=== PATIENT | male | born 1970 | race Two or more races ===

== ENCOUNTER 2021-09-03 22:48 | Inpatient (IN) | payer OTHER ==
[2021-09-04 00:40] LABS: BASO % 0.5 % (0-2.0); EOS % 1.5 % (0-4.5); HEMATOCRIT 44.2 % (35.4-49); HEMOGLOBIN 14.2 GM/dL (11.7-16.9); LYMPH % 7.9 % (8-40); MCH 27.6 pg (25.7-33.7); MCHC 32.2 g/dl (32.0-35.9); MEAN CELL VOLUME 85.9 fl (80-96); MEAN PLT VOLUME 9.1 fl (7.5-11.1); MONO % 9.2 % (3.8-10.2); NEUT % 80.9 % (42.8-82.8); PLATELET COUNT 344 10^3/uL (134-434); RBC 5.15 M/mm3 (4.00-5.60); RDW 15.6 % (11.9-15.9); WHITE BLOOD COUNT 12.6 K/mm3 (4.0-10.0)
[2021-09-04 01:01] LABS: BLOOD UREA NITROGEN 58.1 mg/dL (7-18); CALCIUM 8.7 mg/dL (8.5-10.1)
[2021-09-04 01:02] LABS: ALBUMIN 2.6 g/dl (3.4-5.0)
[2021-09-04 01:05] LABS: CREATININE 2.9 mg/dL (0.55-1.3)
[2021-09-04 01:06] LABS: BILIRUBIN,TOTAL 0.5 mg/dL (0.2-1); TOT PROT 7.3 g/dl (6.4-8.2)
[2021-09-04 01:09] LABS: N-TERMINAL BNP 10927.5 pg/ml (5-125)
[2021-09-04] MEDS ORDERED: FUROSEMIDE 40 MG/4 ML INJECTABLE VIAL IVPUSH ONE (01:33)
[2021-09-04] MEDS ORDERED: FUROSEMIDE 40 MG/4 ML INJECTABLE VIAL ONE ×2 (02:40→10:23)
[2021-09-04 03:57] LABS: EPI CELLS 2 /uL (0-25.1); HYALINE CASTS 0 /uL (0-3.1); URINE APPEARANCE CLEAR; URINE BACTERIA 7 /uL (0-1359); URINE BILIRUBIN NEGATIVE (NEGATIVE); URINE COLOR YELLOW; URINE GLUCOSE (UA) 2+ (NEGATIVE); URINE KETONE NEGATIVE (NEGATIVE); URINE LEUK ESTERASE NEGATIVE (NEGATIVE); URINE NITRITE NEGATIVE (NEGATIVE); URINE PROTEIN 3+ (NEGATIVE); URINE RBC 4 /uL (0-23.9); URINE WBC 4 /uL (0-25.8)
[2021-09-04] MEDS ORDERED: HEPARIN NA (PORCINE) 5,000 UNITS/ML 1ML VIAL ONE ×3 (06:37→21:22)
[2021-09-04] MEDS: HEPARIN NA (PORCINE) 5,000 UNITS/ML 1ML VIAL SQ SCH ×4 (06:47→21:29)
[2021-09-04 07:28] LABS: BASO % 0.6 % (0-2.0); EOS % 0.9 % (0-4.5); HEMATOCRIT 41.2 % (35.4-49); HEMOGLOBIN 13.2 GM/dL (11.7-16.9); LYMPH % 7.7 % (8-40); MCH 27.5 pg (25.7-33.7); MCHC 31.9 g/dl (32.0-35.9); MEAN CELL VOLUME 86.1 fl (80-96); MEAN PLT VOLUME 9.6 fl (7.5-11.1); MONO % 8.8 % (3.8-10.2); PLATELET COUNT 336 10^3/uL (134-434); RBC 4.78 M/mm3 (4.00-5.60); RDW 15.5 % (11.9-15.9)
[2021-09-04] MEDS: INSULIN SLIDING SCALE (NOVOLOG) 1 VIAL SQ SCH ×4 (07:50→21:29)
[2021-09-04 07:54] LABS: CALCIUM 8.7 mg/dL (8.5-10.1)
[2021-09-04 07:55] LABS: ALBUMIN 2.4 g/dl (3.4-5.0); MAGNESIUM 2.1 mg/dL (1.8-2.4)
[2021-09-04 07:57] LABS: CREATININE 2.9 mg/dL (0.55-1.3); PHOSPHOROUS 4.7 mg/dL (2.5-4.9)
[2021-09-04 07:58] LABS: BILIRUBIN,TOTAL 0.6 mg/dL (0.2-1); TOT PROT 6.7 g/dl (6.4-8.2)
[2021-09-04] MEDS ORDERED: SODIUM ZIRCONIUM CYCLOSILICATE (LOKELMA) 5 GM PACKET PO SCH (10:00)
[2021-09-04] MEDS ORDERED: SODIUM ZIRCONIUM CYCLOSILICATE (LOKELMA) 5 GM PACKET ONE (10:23)
[2021-09-04] MEDS: FUROSEMIDE 40 MG/4 ML INJECTABLE VIAL IVPUSH SCH (10:31)
[2021-09-04] MEDS ORDERED: metoPROLOL SUCCINATE 25 MG TAB.SR.24H (FP) ONE (16:11)
[2021-09-04] MEDS: metoPROLOL SUCCINATE 25 MG TAB.SR.24H (FP) PO SCH (16:27)
[2021-09-04 23:32] VITALS: BMI 34.9
[2021-09-05] MEDS: INSULIN SLIDING SCALE (NOVOLOG) 1 VIAL SQ SCH ×4 (07:02→22:05)
[2021-09-05] MEDS: HEPARIN NA (PORCINE) 5,000 UNITS/ML 1ML VIAL SQ SCH ×3 (07:04→21:53)
[2021-09-05 07:56] LABS: BASO % 0.4 % (0-2.0); HEMATOCRIT 38.8 % (35.4-49); HEMOGLOBIN 12.4 GM/dL (11.7-16.9); LYMPH % 14.3 % (8-40); MCH 27.7 pg (25.7-33.7); MCHC 31.9 g/dl (32.0-35.9); MEAN CELL VOLUME 86.6 fl (80-96); MEAN PLT VOLUME 9.7 fl (7.5-11.1); MONO % 14.5 % (3.8-10.2); NEUT % 69.8 % (42.8-82.8); PLATELET COUNT 313 10^3/uL (134-434); RBC 4.48 M/mm3 (4.00-5.60); RDW 15.7 % (11.9-15.9); WHITE BLOOD COUNT 10.8 K/mm3 (4.0-10.0)
[2021-09-05 08:24] LABS: ALBUMIN 2.2 g/dl (3.4-5.0); BLOOD UREA NITROGEN 50.6 mg/dL (7-18)
[2021-09-05 08:25] LABS: CALCIUM 8.2 mg/dL (8.5-10.1)
[2021-09-05 08:28] LABS: BILIRUBIN,TOTAL 0.6 mg/dL (0.2-1); TOT PROT 6.1 g/dl (6.4-8.2)
[2021-09-05 08:29] LABS: CREATININE 2.9 mg/dL (0.55-1.3)
[2021-09-05] MEDS: FUROSEMIDE 40 MG/4 ML INJECTABLE VIAL IVPUSH SCH (09:57)
[2021-09-05] MEDS: metoPROLOL SUCCINATE 25 MG TAB.SR.24H (FP) PO SCH (09:58)
[2021-09-06] MEDS: HEPARIN NA (PORCINE) 5,000 UNITS/ML 1ML VIAL SQ SCH ×4 (06:20→22:27)
[2021-09-06] MEDS: INSULIN SLIDING SCALE (NOVOLOG) 1 VIAL SQ SCH ×4 (06:23→22:27)
[2021-09-06 07:25] LABS: BASO % 0.6 % (0-2.0); EOS % 3.8 % (0-4.5); HEMATOCRIT 39.8 % (35.4-49); HEMOGLOBIN 12.6 GM/dL (11.7-16.9); LYMPH % 14.5 % (8-40); MCH 27.4 pg (25.7-33.7); MCHC 31.6 g/dl (32.0-35.9); MEAN CELL VOLUME 86.5 fl (80-96); MEAN PLT VOLUME 9.8 fl (7.5-11.1); MONO % 10.8 % (3.8-10.2); NEUT % 70.3 % (42.8-82.8); PLATELET COUNT 299 10^3/uL (134-434); RDW 15.5 % (11.9-15.9); WHITE BLOOD COUNT 9.5 K/mm3 (4.0-10.0)
[2021-09-06 07:50] LABS: BLOOD UREA NITROGEN 43.7 mg/dL (7-18); CALCIUM 8.1 mg/dL (8.5-10.1)
[2021-09-06 07:52] LABS: CREATININE 2.7 mg/dL (0.55-1.3)
[2021-09-06 07:53] LABS: BILIRUBIN,TOTAL 0.6 mg/dL (0.2-1); TOT PROT 6.2 g/dl (6.4-8.2)
[2021-09-06] MEDS: FUROSEMIDE 40 MG/4 ML INJECTABLE VIAL IVPUSH SCH (10:04)
[2021-09-06] MEDS: metoPROLOL SUCCINATE 25 MG TAB.SR.24H (FP) PO SCH (10:04)
[2021-09-06 12:34] LABS: HIV INTERPRETATION NEGATIVE (NEGATIVE)
[2021-09-07] MEDS: HEPARIN NA (PORCINE) 5,000 UNITS/ML 1ML VIAL SQ SCH ×3 (06:55→21:23)
[2021-09-07] MEDS: INSULIN SLIDING SCALE (NOVOLOG) 1 VIAL SQ SCH ×4 (06:56→21:21)
[2021-09-07 07:42] LABS: BASO % 0.6 % (0-2.0); EOS % 1.3 % (0-4.5); HEMATOCRIT 38.9 % (35.4-49); HEMOGLOBIN 12.5 GM/dL (11.7-16.9); LYMPH % 23.1 % (8-40); MCH 27.8 pg (25.7-33.7); MEAN CELL VOLUME 86.7 fl (80-96); MEAN PLT VOLUME 9.8 fl (7.5-11.1); MONO % 12.6 % (3.8-10.2); NEUT % 62.4 % (42.8-82.8); PLATELET COUNT 306 10^3/uL (134-434); RBC 4.49 M/mm3 (4.00-5.60); RDW 15.8 % (11.9-15.9); WHITE BLOOD COUNT 9.8 K/mm3 (4.0-10.0)
[2021-09-07 08:10] LABS: ALBUMIN 2.2 g/dl (3.4-5.0); BLOOD UREA NITROGEN 48.5 mg/dL (7-18); CALCIUM 8.4 mg/dL (8.5-10.1); MAGNESIUM 2.2 mg/dL (1.8-2.4)
[2021-09-07 08:13] LABS: CREATININE 2.7 mg/dL (0.55-1.3)
[2021-09-07 08:15] LABS: BILIRUBIN,TOTAL 0.6 mg/dL (0.2-1); TOT PROT 6.6 g/dl (6.4-8.2)
[2021-09-07] MEDS: FUROSEMIDE 40 MG/4 ML INJECTABLE VIAL IVPUSH SCH (09:52)
[2021-09-07] MEDS: metoPROLOL SUCCINATE 25 MG TAB.SR.24H (FP) PO SCH (09:52)
[2021-09-07] MEDS: guaiFENesin/D-METHORPHAN HB 10 ML UNIT-DOSE CUPS PO PRN (22:10)
[2021-09-08] MEDS: HEPARIN NA (PORCINE) 5,000 UNITS/ML 1ML VIAL SQ SCH ×3 (05:49→21:40)
[2021-09-08] MEDS: guaiFENesin/D-METHORPHAN HB 10 ML UNIT-DOSE CUPS PO PRN ×3 (05:53→18:45)
[2021-09-08] MEDS: INSULIN SLIDING SCALE (NOVOLOG) 1 VIAL SQ SCH ×4 (06:05→21:40)
[2021-09-08 08:06] LABS: CALCIUM 8.2 mg/dL (8.5-10.1)
[2021-09-08 08:14] LABS: CREATININE 2.8 mg/dL (0.55-1.3)
[2021-09-08] MEDS: metoPROLOL SUCCINATE 25 MG TAB.SR.24H (FP) PO SCH (09:56)
[2021-09-08] MEDS: FUROSEMIDE 20 MG TABLET (FP) PO SCH (09:56)
[2021-09-08] MEDS ORDERED: FUROSEMIDE 40 MG TABLET (FP) PO SCH (10:00)
[2021-09-08 12:07] LABS: ANTIGLOMERULAR BASEMENT MEN.AB 3 units (0-20)
[2021-09-08 17:07] LABS: ATYPICAL pANCA <1:20 titer (Neg:<1:20); C-ANCA <1:20 titer (Neg:<1:20)
[2021-09-08] MEDS ORDERED: DOCUSATE SODIUM 100 MG CAPSULE (FP) PO ONE (20:17)
[2021-09-08] MEDS ORDERED: SENNOSIDES 8.6MG TABLET (FP) PO ONE (20:18)
[2021-09-09] MEDS: INSULIN SLIDING SCALE (NOVOLOG) 1 VIAL SQ SCH ×4 (06:24→21:52)
[2021-09-09] MEDS: HEPARIN NA (PORCINE) 5,000 UNITS/ML 1ML VIAL SQ SCH ×3 (06:24→21:52)
[2021-09-09 07:30] LABS: EOS % 2.1 % (0-4.5); HEMATOCRIT 38.9 % (35.4-49); HEMOGLOBIN 12.5 GM/dL (11.7-16.9); LYMPH % 22.9 % (8-40); MCH 27.7 pg (25.7-33.7); MCHC 32.1 g/dl (32.0-35.9); MEAN CELL VOLUME 86.3 fl (80-96); PLATELET COUNT 321 10^3/uL (134-434); RBC 4.51 M/mm3 (4.00-5.60); RDW 15.8 % (11.9-15.9); WHITE BLOOD COUNT 8.6 K/mm3 (4.0-10.0)
[2021-09-09 07:51] LABS: CALCIUM 8.5 mg/dL (8.5-10.1)
[2021-09-09 07:52] LABS: ALBUMIN 2.1 g/dl (3.4-5.0); BLOOD UREA NITROGEN 47.5 mg/dL (7-18); MAGNESIUM 2.2 mg/dL (1.8-2.4)
[2021-09-09 07:55] LABS: CREATININE 2.7 mg/dL (0.55-1.3)
[2021-09-09 07:57] LABS: BILIRUBIN,TOTAL 0.6 mg/dL (0.2-1); TOT PROT 6.5 g/dl (6.4-8.2)
[2021-09-09] MEDS: metoPROLOL SUCCINATE 25 MG TAB.SR.24H (FP) PO SCH ×2 (08:08→10:54)
[2021-09-09] MEDS ORDERED: REGADENOSON 0.4 MG/5 ML PRE-FILLED SYRINGE IVPUSH ONE ×2 (10:00→10:30)
[2021-09-09] MEDS: FUROSEMIDE 20 MG TABLET (FP) PO SCH (11:03)
[2021-09-09] MEDS: LOSARTAN POTASSIUM 50 MG TABLET PO SCH (12:33)
[2021-09-09] MEDS: ASPIRIN 81 MG CHEWABLE TABLETS PO SCH (15:14)
[2021-09-09] MEDS: guaiFENesin/D-METHORPHAN HB 10 ML UNIT-DOSE CUPS PO PRN ×2 (15:36→22:10)
[2021-09-09] MEDS: ROSUVASTATIN CA 20 MG TABLET PO SCH (21:51)
[2021-09-10] MEDS: INSULIN SLIDING SCALE (NOVOLOG) 1 VIAL SQ SCH ×4 (06:28→21:47)
[2021-09-10] MEDS: HEPARIN NA (PORCINE) 5,000 UNITS/ML 1ML VIAL SQ SCH ×3 (06:36→21:47)
[2021-09-10 07:32] LABS: BASO % 0.7 % (0-2.0); EOS % 1.7 % (0-4.5); HEMATOCRIT 37.3 % (35.4-49); HEMOGLOBIN 12.3 GM/dL (11.7-16.9); LYMPH % 21.5 % (8-40); MCH 28.1 pg (25.7-33.7); MCHC 32.9 g/dl (32.0-35.9); MEAN CELL VOLUME 85.5 fl (80-96); MEAN PLT VOLUME 9.4 fl (7.5-11.1); NEUT % 64.1 % (42.8-82.8); PLATELET COUNT 297 10^3/uL (134-434); RBC 4.36 M/mm3 (4.00-5.60); RDW 15.6 % (11.9-15.9); WHITE BLOOD COUNT 8.8 K/mm3 (4.0-10.0)
[2021-09-10 08:00] LABS: CALCIUM 8.2 mg/dL (8.5-10.1)
[2021-09-10 08:01] LABS: BLOOD UREA NITROGEN 44.8 mg/dL (7-18)
[2021-09-10 08:04] LABS: CREATININE 2.5 mg/dL (0.55-1.3)
[2021-09-10 08:06] LABS: BILIRUBIN,TOTAL 0.8 mg/dL (0.2-1); TOT PROT 6.2 g/dl (6.4-8.2)
[2021-09-10] MEDS: FUROSEMIDE 20 MG TABLET (FP) PO SCH (10:34)
[2021-09-10] MEDS: LOSARTAN POTASSIUM 50 MG TABLET PO SCH (10:35)
[2021-09-10] MEDS: metoPROLOL SUCCINATE 25 MG TAB.SR.24H (FP) PO SCH (10:35)
[2021-09-10] MEDS: ASPIRIN 81 MG CHEWABLE TABLETS PO SCH (10:35)
[2021-09-10] MEDS: ROSUVASTATIN CA 20 MG TABLET PO SCH (21:47)
[2021-09-11] MEDS ORDERED: ACETAMINOPHEN 325 MG TABLET (FP) PO ONE (05:36)
[2021-09-11] MEDS: glipiZIDE-XL 2.5 MG TAB.ER.24 PO SCH (06:14)
[2021-09-11] MEDS: INSULIN SLIDING SCALE (NOVOLOG) 1 VIAL SQ SCH ×4 (06:15→22:03)
[2021-09-11] MEDS: HEPARIN NA (PORCINE) 5,000 UNITS/ML 1ML VIAL SQ SCH ×3 (06:15→22:03)
[2021-09-11 07:27] LABS: BASO % 0.6 % (0-2.0); EOS % 1.6 % (0-4.5); HEMATOCRIT 36.4 % (35.4-49); LYMPH % 21.5 % (8-40); MCH 28.1 pg (25.7-33.7); MCHC 32.9 g/dl (32.0-35.9); MEAN CELL VOLUME 85.3 fl (80-96); MEAN PLT VOLUME 9.7 fl (7.5-11.1); MONO % 11.4 % (3.8-10.2); NEUT % 64.9 % (42.8-82.8); PLATELET COUNT 329 10^3/uL (134-434); RBC 4.26 M/mm3 (4.00-5.60); RDW 15.6 % (11.9-15.9); WHITE BLOOD COUNT 8.8 K/mm3 (4.0-10.0)
[2021-09-11 07:46] LABS: CALCIUM 8.2 mg/dL (8.5-10.1)
[2021-09-11 07:47] LABS: ALBUMIN 2.1 g/dl (3.4-5.0); BLOOD UREA NITROGEN 46.4 mg/dL (7-18); MAGNESIUM 2.2 mg/dL (1.8-2.4)
[2021-09-11 07:50] LABS: CREATININE 2.6 mg/dL (0.55-1.3)
[2021-09-11 07:51] LABS: TOT PROT 6.4 g/dl (6.4-8.2)
[2021-09-11 07:54] LABS: BILIRUBIN,TOTAL 0.5 mg/dL (0.2-1)
[2021-09-11] MEDS: LOSARTAN POTASSIUM 50 MG TABLET PO SCH (09:17)
[2021-09-11] MEDS: ASPIRIN 81 MG CHEWABLE TABLETS PO SCH (09:17)
[2021-09-11] MEDS: FUROSEMIDE 20 MG TABLET (FP) PO SCH (09:18)
[2021-09-11] MEDS ORDERED: traMADol HCL 50 MG TABLET PO ONE (10:30)
[2021-09-11] MEDS: ROSUVASTATIN CA 20 MG TABLET PO SCH (22:03)
[2021-09-11] MEDS: guaiFENesin/D-METHORPHAN HB 10 ML UNIT-DOSE CUPS PO PRN (22:07)
[2021-09-12] MEDS: INSULIN SLIDING SCALE (NOVOLOG) 1 VIAL SQ SCH ×4 (06:03→21:38)
[2021-09-12] MEDS: glipiZIDE-XL 2.5 MG TAB.ER.24 PO SCH (06:03)
[2021-09-12] MEDS: HEPARIN NA (PORCINE) 5,000 UNITS/ML 1ML VIAL SQ SCH ×3 (06:03→21:37)
[2021-09-12 09:11] LABS: BASO % 0.9 % (0-2.0); EOS % 2.1 % (0-4.5); HEMATOCRIT 40.7 % (35.4-49); HEMOGLOBIN 13.1 GM/dL (11.7-16.9); LYMPH % 25.2 % (8-40); MCH 27.6 pg (25.7-33.7); MCHC 32.3 g/dl (32.0-35.9); MEAN CELL VOLUME 85.7 fl (80-96); MEAN PLT VOLUME 9.8 fl (7.5-11.1); MONO % 10.3 % (3.8-10.2); NEUT % 61.5 % (42.8-82.8); PLATELET COUNT 370 10^3/uL (134-434); RBC 4.74 M/mm3 (4.00-5.60); RDW 15.7 % (11.9-15.9); WHITE BLOOD COUNT 7.2 K/mm3 (4.0-10.0)
[2021-09-12] MEDS: LOSARTAN POTASSIUM 50 MG TABLET PO SCH (09:37)
[2021-09-12] MEDS: ASPIRIN 81 MG CHEWABLE TABLETS PO SCH (09:37)
[2021-09-12] MEDS: FUROSEMIDE 20 MG TABLET (FP) PO SCH (09:37)
[2021-09-12 09:44] LABS: BLOOD UREA NITROGEN 50.2 mg/dL (7-18); CALCIUM 8.8 mg/dL (8.5-10.1)
[2021-09-12 09:45] LABS: ALBUMIN 2.4 g/dl (3.4-5.0); MAGNESIUM 2.4 mg/dL (1.8-2.4)
[2021-09-12 09:48] LABS: CREATININE 2.7 mg/dL (0.55-1.3)
[2021-09-12 09:49] LABS: BILIRUBIN,TOTAL 0.9 mg/dL (0.2-1); TOT PROT 7.3 g/dl (6.4-8.2)
[2021-09-12] MEDS ORDERED: SODIUM ZIRCONIUM CYCLOSILICATE (LOKELMA) 5 GM PACKET PO ONE (11:30)
[2021-09-12] MEDS: ROSUVASTATIN CA 20 MG TABLET PO SCH (21:38)
[2021-09-13] MEDS: HEPARIN NA (PORCINE) 5,000 UNITS/ML 1ML VIAL SQ SCH ×3 (06:22→23:40)
[2021-09-13] MEDS: glipiZIDE-XL 2.5 MG TAB.ER.24 PO SCH (06:22)
[2021-09-13] MEDS: INSULIN SLIDING SCALE (NOVOLOG) 1 VIAL SQ SCH ×4 (06:23→23:08)
[2021-09-13 07:35] LABS: BASO % 1.1 % (0-2.0); EOS % 2.1 % (0-4.5); HEMATOCRIT 38.2 % (35.4-49); HEMOGLOBIN 12.6 GM/dL (11.7-16.9); LYMPH % 22.4 % (8-40); MCH 28.1 pg (25.7-33.7); MCHC 33.1 g/dl (32.0-35.9); MEAN PLT VOLUME 9.6 fl (7.5-11.1); MONO % 11.6 % (3.8-10.2); NEUT % 62.8 % (42.8-82.8); PLATELET COUNT 363 10^3/uL (134-434); RDW 15.8 % (11.9-15.9); WHITE BLOOD COUNT 8.1 K/mm3 (4.0-10.0)
[2021-09-13 07:47] LABS: ALBUMIN 2.3 g/dl (3.4-5.0); BLOOD UREA NITROGEN 48.7 mg/dL (7-18); CALCIUM 8.6 mg/dL (8.5-10.1); MAGNESIUM 2.3 mg/dL (1.8-2.4)
[2021-09-13 07:50] LABS: CREATININE 2.7 mg/dL (0.55-1.3)
[2021-09-13] MEDS ORDERED: LOSARTAN POTASSIUM 50 MG TABLET PO SCH (07:50)
[2021-09-13 07:52] LABS: BILIRUBIN,TOTAL 0.5 mg/dL (0.2-1)
[2021-09-13] MEDS: ASPIRIN 81 MG CHEWABLE TABLETS PO SCH (09:51)
[2021-09-13] MEDS: FUROSEMIDE 20 MG TABLET (FP) PO SCH (09:51)
[2021-09-13] MEDS: ROSUVASTATIN CA 20 MG TABLET PO SCH (23:39)
[2021-09-13] MEDS: POLYETHYLENE GLYCOL (HEALTHYLAX) 3350 17 GM PACKET PO PRN (23:39)
[2021-09-14] MEDS: INSULIN SLIDING SCALE (NOVOLOG) 1 VIAL SQ SCH ×4 (06:29→21:59)
[2021-09-14] MEDS: glipiZIDE-XL 2.5 MG TAB.ER.24 PO SCH (06:32)
[2021-09-14] MEDS: HEPARIN NA (PORCINE) 5,000 UNITS/ML 1ML VIAL SQ SCH ×3 (06:35→22:00)
[2021-09-14 07:52] LABS: BASO % 1.1 % (0-2.0); EOS % 2.1 % (0-4.5); HEMATOCRIT 39.8 % (35.4-49); HEMOGLOBIN 13.1 GM/dL (11.7-16.9); LYMPH % 26.3 % (8-40); MCH 28.1 pg (25.7-33.7); MEAN CELL VOLUME 85.3 fl (80-96); MEAN PLT VOLUME 9.5 fl (7.5-11.1); MONO % 12.3 % (3.8-10.2); NEUT % 58.2 % (42.8-82.8); PLATELET COUNT 374 10^3/uL (134-434); RBC 4.67 M/mm3 (4.00-5.60); RDW 15.6 % (11.9-15.9); WHITE BLOOD COUNT 7.5 K/mm3 (4.0-10.0)
[2021-09-14 08:16] LABS: ALBUMIN 2.3 g/dl (3.4-5.0); CALCIUM 8.7 mg/dL (8.5-10.1); MAGNESIUM 2.3 mg/dL (1.8-2.4)
[2021-09-14 08:19] LABS: CREATININE 2.9 mg/dL (0.55-1.3)
[2021-09-14 08:21] LABS: BILIRUBIN,TOTAL 0.9 mg/dL (0.2-1); TOT PROT 7.1 g/dl (6.4-8.2)
[2021-09-14] MEDS: FUROSEMIDE 20 MG TABLET (FP) PO SCH (09:40)
[2021-09-14] MEDS: ASPIRIN 81 MG CHEWABLE TABLETS PO SCH (09:40)
[2021-09-14] MEDS: POLYETHYLENE GLYCOL (HEALTHYLAX) 3350 17 GM PACKET PO PRN (09:43)
[2021-09-14] MEDS: SODIUM ZIRCONIUM CYCLOSILICATE (LOKELMA) 5 GM PACKET PO SCH (11:57)
[2021-09-14] MEDS: ROSUVASTATIN CA 20 MG TABLET PO SCH (22:00)
[2021-09-15] MEDS: HEPARIN NA (PORCINE) 5,000 UNITS/ML 1ML VIAL SQ SCH ×3 (06:48→21:25)
[2021-09-15] MEDS: glipiZIDE-XL 2.5 MG TAB.ER.24 PO SCH (06:48)
[2021-09-15] MEDS: INSULIN SLIDING SCALE (NOVOLOG) 1 VIAL SQ SCH ×4 (06:49→21:28)
[2021-09-15 07:58] LABS: CALCIUM 8.3 mg/dL (8.5-10.1)
[2021-09-15 07:59] LABS: ALBUMIN 2.3 g/dl (3.4-5.0); BLOOD UREA NITROGEN 56.2 mg/dL (7-18); MAGNESIUM 2.2 mg/dL (1.8-2.4)
[2021-09-15 08:04] LABS: BILIRUBIN,TOTAL 0.5 mg/dL (0.2-1); TOT PROT 7.1 g/dl (6.4-8.2)
[2021-09-15 08:14] LABS: EOS % 2.7 % (0-4.5); HEMATOCRIT 40.1 % (35.4-49); HEMOGLOBIN 12.9 GM/dL (11.7-16.9); LYMPH % 23.2 % (8-40); MCH 27.7 pg (25.7-33.7); MCHC 32.1 g/dl (32.0-35.9); MEAN CELL VOLUME 86.1 fl (80-96); MONO % 12.6 % (3.8-10.2); NEUT % 60.5 % (42.8-82.8); PLATELET COUNT 387 10^3/uL (134-434); RBC 4.66 M/mm3 (4.00-5.60); RDW 15.5 % (11.9-15.9)
[2021-09-15] MEDS: SODIUM ZIRCONIUM CYCLOSILICATE (LOKELMA) 5 GM PACKET PO SCH (09:53)
[2021-09-15] MEDS: FUROSEMIDE 20 MG TABLET (FP) PO SCH (09:54)
[2021-09-15] MEDS: ASPIRIN 81 MG CHEWABLE TABLETS PO SCH (09:54)
[2021-09-15] MEDS: POLYETHYLENE GLYCOL (HEALTHYLAX) 3350 17 GM PACKET PO PRN (14:04)
[2021-09-15] MEDS: ROSUVASTATIN CA 20 MG TABLET PO SCH (21:25)
[2021-09-16] MEDS: HEPARIN NA (PORCINE) 5,000 UNITS/ML 1ML VIAL SQ SCH ×2 (05:56→15:22)
[2021-09-16] MEDS: glipiZIDE-XL 2.5 MG TAB.ER.24 PO SCH (06:53)
[2021-09-16] MEDS: INSULIN SLIDING SCALE (NOVOLOG) 1 VIAL SQ SCH ×4 (06:54→22:10)
[2021-09-16 07:45] LABS: BASO % 0.9 % (0-2.0); EOS % 2.4 % (0-4.5); HEMATOCRIT 41.7 % (35.4-49); HEMOGLOBIN 13.3 GM/dL (11.7-16.9); MCH 27.1 pg (25.7-33.7); MCHC 31.8 g/dl (32.0-35.9); MEAN CELL VOLUME 85.3 fl (80-96); MEAN PLT VOLUME 9.9 fl (7.5-11.1); MONO % 12.8 % (3.8-10.2); NEUT % 60.9 % (42.8-82.8); PLATELET COUNT 414 10^3/uL (134-434); RDW 15.7 % (11.9-15.9); WHITE BLOOD COUNT 9.1 K/mm3 (4.0-10.0)
[2021-09-16 07:51] LABS: ALBUMIN 2.4 g/dl (3.4-5.0); CALCIUM 8.7 mg/dL (8.5-10.1)
[2021-09-16 07:52] LABS: BLOOD UREA NITROGEN 58.5 mg/dL (7-18); MAGNESIUM 2.1 mg/dL (1.8-2.4)
[2021-09-16 07:53] LABS: CREATININE 2.9 mg/dL (0.55-1.3)
[2021-09-16 07:55] LABS: BILIRUBIN,TOTAL 0.4 mg/dL (0.2-1); TOT PROT 7.3 g/dl (6.4-8.2)
[2021-09-16] MEDS: ASPIRIN 81 MG CHEWABLE TABLETS PO SCH (10:04)
[2021-09-16] MEDS: FUROSEMIDE 20 MG TABLET (FP) PO SCH (10:04)
[2021-09-16] MEDS: SODIUM ZIRCONIUM CYCLOSILICATE (LOKELMA) 5 GM PACKET PO SCH (10:06)
[2021-09-16] MEDS: ROSUVASTATIN CA 20 MG TABLET PO SCH (22:10)
[2021-09-17] MEDS: INSULIN SLIDING SCALE (NOVOLOG) 1 VIAL SQ SCH ×4 (06:20→21:04)
[2021-09-17] MEDS: glipiZIDE-XL 2.5 MG TAB.ER.24 PO SCH (06:23)
[2021-09-17 08:00] LABS: CALCIUM 8.9 mg/dL (8.5-10.1)
[2021-09-17 08:01] LABS: ALBUMIN 2.5 g/dl (3.4-5.0); BLOOD UREA NITROGEN 53.1 mg/dL (7-18); MAGNESIUM 2.3 mg/dL (1.8-2.4)
[2021-09-17 08:04] LABS: CREATININE 2.6 mg/dL (0.55-1.3); TOT PROT 7.2 g/dl (6.4-8.2)
[2021-09-17 08:05] LABS: BASO % 0.4 % (0-2.0); BILIRUBIN,TOTAL 0.4 mg/dL (0.2-1); LYMPH % 23.6 % (8-40); MCH 27.4 pg (25.7-33.7); MCHC 32.6 g/dl (32.0-35.9); MEAN PLT VOLUME 9.7 fl (7.5-11.1); MONO % 13.8 % (3.8-10.2); NEUT % 60.2 % (42.8-82.8); PLATELET COUNT 411 10^3/uL (134-434); RBC 5.11 M/mm3 (4.00-5.60); RDW 15.1 % (11.9-15.9); WHITE BLOOD COUNT 9.1 K/mm3 (4.0-10.0)
[2021-09-17] MEDS: SODIUM ZIRCONIUM CYCLOSILICATE (LOKELMA) 5 GM PACKET PO SCH (10:29)
[2021-09-17] MEDS: FUROSEMIDE 20 MG TABLET (FP) PO SCH (10:29)
[2021-09-17] MEDS: ASPIRIN 81 MG CHEWABLE TABLETS PO SCH (10:29)
[2021-09-17] MEDS: ROSUVASTATIN CA 20 MG TABLET PO SCH (21:04)
[2021-09-18] MEDS: glipiZIDE-XL 2.5 MG TAB.ER.24 PO SCH (06:47)
[2021-09-18] MEDS: INSULIN SLIDING SCALE (NOVOLOG) 1 VIAL SQ SCH (06:48)
[2021-09-18 07:45] LABS: CALCIUM 8.9 mg/dL (8.5-10.1)
[2021-09-18 07:46] LABS: ALBUMIN 2.5 g/dl (3.4-5.0); BLOOD UREA NITROGEN 57.5 mg/dL (7-18); MAGNESIUM 2.4 mg/dL (1.8-2.4)
[2021-09-18 07:47] LABS: BASO % 0.5 % (0-2.0); EOS % 2.1 % (0-4.5); HEMATOCRIT 44.6 % (35.4-49); HEMOGLOBIN 14.3 GM/dL (11.7-16.9); LYMPH % 22.1 % (8-40); MCH 27.5 pg (25.7-33.7); MEAN CELL VOLUME 85.8 fl (80-96); MEAN PLT VOLUME 9.7 fl (7.5-11.1); MONO % 13.4 % (3.8-10.2); NEUT % 61.9 % (42.8-82.8); PLATELET COUNT 404 10^3/uL (134-434); RBC 5.21 M/mm3 (4.00-5.60); RDW 15.5 % (11.9-15.9); TOT PROT 7.3 g/dl (6.4-8.2); WHITE BLOOD COUNT 8.6 K/mm3 (4.0-10.0)
[2021-09-18 07:49] LABS: CREATININE 2.8 mg/dL (0.55-1.3)
[2021-09-18 07:50] LABS: BILIRUBIN,TOTAL 0.5 mg/dL (0.2-1)
[2021-09-18] MEDS: FUROSEMIDE 20 MG TABLET (FP) PO SCH (09:56)
[2021-09-18] MEDS: ASPIRIN 81 MG CHEWABLE TABLETS PO SCH (09:56)
[2021-09-18] MEDS: SODIUM ZIRCONIUM CYCLOSILICATE (LOKELMA) 5 GM PACKET PO SCH (09:56)
[2021-09-18 11:02] VITALS: BP 129/78; PULSE 96; TEMP 98.4
== END 2021-09-18 14:17 | disposition home or self-care (01) | DRG 194 ==
LOC: JER 22:48 → JERBED 09-04 02:34 → J4W 09-04 22:24
PROVIDERS: ADMIT Hospitalist; ATTEND Nurse Practitioner Acute Care
DX: I13.0 Hypertensive heart and chronic kidney disease with heart failure and stage 1 through stage 4 chronic kidney disease, or unspecified chronic kidney disease (principal); N18.9 Chronic kidney disease, unspecified; E11.22 Type 2 diabetes mellitus with diabetic chronic kidney disease; I50.21 Acute systolic (congestive) heart failure; I47.2 Ventricular tachycardia; E66.9 Obesity, unspecified; Z68.31 Body mass index [BMI] 31.0-31.9, adult; E87.5 Hyperkalemia
CPT/HCPCS: 36415; 71046-TC-FY; 76775-TC; 78452-TC; 80048; 80053; 80061; 81003; 82436; 82570; 82962; 83036; 83516; 83520; 83735; 83880; 83930; 83935; 84100; 84133; 84155; 84156; 84165; 84300; 84443; 84484; 84540; 85025; 86038; 86160; 86225; 86256; 86705; 86708; 86803; 87086; 87340; 87389; 87517; 93005; 93010; 93017; 93306-TC; 93970-TC; 93975; 99285-25; A9502; C9803-CS; J1644; J2785; U0003; U0005